=== PATIENT | male | born 1990 | race Caucasian/White ===

== ENCOUNTER 2017-12-25 16:03 | Emergency (ER) | payer SELFPAY ==
[2017-12-25 16:32] VITALS: BP 116/90
--- NOTE | 2017-12-25 16:56 | RAD ---
INDICATION: Medial right ankle pain 2 days after injury COMPARISON: Right foot radiograph November 26, 2014 TECHNIQUE: 3 views of the right ankle were obtained. FINDINGS: The bones are normal alignment. Joint spaces appear maintained. No fracture is seen. IMPRESSION: Normal ankle radiograph. If the patient's symptoms persist, follow-up imaging is recommended.
--- NOTE | 2017-12-25 17:38 | UC ---
Lower Extremity/Ankle HPI - HPI Summary HPI Summary: Patient is a 27-year-old otherwise healthy male presenting to the with medial right ankle pain 2 days. He does not recall injuring the area. Denies any history of injury to the area or tendinitis. Endorses pain worse with flexion, better with extension and rest. Ambulation with pain, rest without pain. Has been taking ibuprofen with mild amount of relief of pain. He has been using crutches also for relief. - History of Current Complaint Chief Complaint: UCLowerExtremity Stated Complaint: ANKLE INJURY Time Seen by Provider: 12/25/17 16:28 Hx Obtained From: Patient Onset/Duration: Sudden Onset Severity Initially: Moderate Severity Currently: Moderate Pain Intensity: 0 Pain Scale Used: 0-10 Numeric Aggravating Factor(s): Standing, Ambulation Alleviating Factor(s): Rest Able to Bear Weight: No Related History: Occupational Injury - Risk Factors Gout Risk Factors: Negative DVT Risk Factors: Negative Septic Arthritis Risk Factor: Negative - Allergies/Home Medications Allergies/Adverse Reactions: Allergies Allergy/AdvReac Type Severity Reaction Status Date / Time No Known Allergies Allergy Verified 12/25/17 16:31 Home Medications: Home Medications NK [No Home Medications Reported] 12/25/17 [History Confirmed 12/25/17] PMH/Surg Hx/FS Hx/Imm Hx Previously Healthy: Yes - Surgical History Surgical History: Yes Surgery Procedure, Year, and Place: UNDESCENDING TESTICLE - Family History Known Family History: Positive: Unknown - Social History Occupation: Employed Full-time Lives: With Family Alcohol Use: Daily Substance Use Type: Marijuana Smoking Status (MU): Current Every Day Smoker Type: Cigarettes Amount Used/How Often: 2 PACKS/WEEK Review of Systems Constitutional: Negative Skin: Negative Respiratory: Negative Cardiovascular: Negative Motor: Negative Neurovascular: Negative Musculoskeletal: Arthralgia - medial R ankle pain Neurological: Negative Is Patient Immunocompromised?: No All Other Systems Reviewed And Are Negative: Yes Physical Exam Triage Information Reviewed: Yes Appearance: Well-Appearing, No Pain Distress, Well-Nourished Vital Signs: Initial Vital Signs Temp 98.4 F 12/25/17 16:28 Pulse 83 12/25/17 16:28 Resp 18 12/25/17 16:28 BP 116/90 12/25/17 16:28 Pulse Ox 99 08/03/18 16:28 Vital Signs Reviewed: Yes Eye Exam: Normal Neck exam: Normal Neck: Positive: Supple, No Lymphadenopathy Respiratory Exam: Normal Respiratory: Positive: Chest non-tender, Lungs clear Cardiovascular Exam: Normal Cardiovascular: Positive: RRR Musculoskeletal Exam: Normal Musculoskeletal: Positive: Strength Intact Neurological: Positive: Alert Psychological: Positive: Normal Response To Family Skin Exam: Normal Lower Extremity Course/Dx - Course Course Of Treatment: During the course of treatment, the patient is evaluated for right medial ankle pain. The pain is just inferior to the medial malleolus with pain on direct palpation. No radiation of pain. Most likely tendinopathy/ tendinitis under the flexor retinaculum due to worsening pain with flexion. He is encouraged ibuprofen, Tylenol, rest, ice continuation of crutches as needed. Note given for work. - Differential Dx/Diagnosis Differential Diagnosis/HQI/PQRI: Fracture (Closed), Sprain, Strain, Tendonitis Provider Diagnoses: Tendonitis Discharge - Sign-Out/Discharge Documenting (check all that apply): Patient Departure - Discharge Plan Condition: Stable Disposition: HOME Patient Education Materials: Tendinitis (ED) Forms: *Work Release Referrals: Benjamin Austin MD [Primary Care Provider] - Additional Instructions: Tylenol 650 mg and ibuprofen 600 mg every 3 hours Crutches as needed for ambulation Elevation Ice to the area - Billing Disposition and Condition Condition: STABLE Disposition: Home
== END 2017-12-25 17:30 | disposition home or self-care (01) ==
LOC: UCEAST 16:03
DX: M77.9 Enthesopathy, unspecified (principal); F17.210 Nicotine dependence, cigarettes, uncomplicated
CPT/HCPCS: 99202; G0463

== ENCOUNTER 2019-07-14 19:27 | Emergency (ER) | payer OTHER ==
[2019-07-14 19:49] VITALS: BP 146/86
[2019-07-14 20:52] LABS: Influenza B Molecular POSITIVE (Negative)
--- NOTE | 2019-07-14 21:06 | UC ---
FLU HPI - HPI Summary HPI Summary: [id number] male presenting with girlfriend for complaint of fever, body aches , cough, and chills times one day. Patient notes intermittent productive cough. Denies shortness breath or wheezing. Denies nausea or vomiting. Taking DayQuil, NyQuil, ibuprofen, and Tylenol for symptom relief. - History of Current Complaint Chief Complaint: UCRespiratory Stated Complaint: FLU SYMPTOMS Hx Obtained From: Patient Pain Intensity: 6 Pain Scale Used: 0-10 Numeric - Allergy/Home Medications Allergies/Adverse Reactions: Allergies Allergy/AdvReac Type Severity Reaction Status Date / Time No Known Allergies Allergy Verified 07/14/19 19:43 Home Medications: Home Medications NK [No Home Medications Reported] 12/25/17 [History Confirmed 07/14/19] PMH/Surg Hx/FS Hx/Imm Hx - Surgical History Surgical History: Yes Surgery Procedure, Year, and Place: UNDESCENDING TESTICLE - Family History Known Family History: Positive: Unknown - Social History Alcohol Use: Weekly Alcohol Amount: twice/week Substance Use Type: Cocaine, Marijuana Substance Use Comment - Amount & Last Used: cocaine 07/09/19 Smoking Status (MU): Current Every Day Smoker Type: Cigarettes Amount Used/How Often: 1/2 PACK/WEEK Review of Systems All Other Systems Reviewed And Are Negative: Yes Constitutional: Positive: Fever, Chills, Fatigue ENT: Positive: Sore Throat, Sinus Congestion Respiratory: Positive: Cough. Negative: Shortness Of Breath Cardiovascular: Positive: Negative Gastrointestinal: Positive: Negative Musculoskeletal: Positive: Myalgia Neurological/Mental Status: Positive: Headache Physical Exam - Summary Physical Exam Summary: Vital Signs Reviewed: Yes A+Ox3, no distress Eyes: Conjunctiva Clear ENT: Hearing grossly normal, TM x 2 clear, moist, uvula midline, no exudate, no erythema Neck: Positive: Supple Respiratory: Positive: No respiratory distress, No accessory muscle use + CTA throughout no w/r Cardiovascular: RRR nl s1, s2 no m/r Musculoskeletal Exam: NARANJO x 4 without difficulty Neurological: Positive: Alert Psychological: Positive: age appropriate behavior Skin: Positive: no rash, no ecchymosis Vital Signs: Initial Vital Signs Temp 97.5 F 07/14/19 19:44 Pulse 102 07/14/19 19:44 Resp 16 07/14/19 19:44 BP 146/86 07/14/19 19:44 Pulse Ox 98 07/14/19 19:44 Lab Results 07/14/19 Range/Units 20:49 Influenza B (Rapid) Positive H (Negative) Flu Course/Dx - Course Course Of Treatment: Rapid flu positive. Educated patient on influenza and Tamiflu. Patient declined treatment Tamiflu at this time. Instructed to follow up with pcp for any new or worsening symptoms. Patient voiced understanding and agreed with treatment plan. - Differential Dx/Diagnosis Differential Diagnosis/HQI/PQRI: Bronchitis, Influenza, Upper Respiratory Infection Provider Diagnosis: Influenza B Discharge ED - Sign-Out/Discharge Documenting (check all that apply): Patient Departure All imaging exams completed and their final reports reviewed: No Studies - Discharge Plan Condition: Stable Disposition: HOME Patient Education Materials: Influenza (ED) Forms: *Work Release Referrals: Benjamin Austin MD [Primary Care Provider] - If Needed Additional Instructions: As discussed, you tested positive for influenza B today. You may take over the counter cold and flu medication for symptom relief. Get plenty of rest and increase your fluid intake. Follow up with your primary care provider or the [facility] listed below if symptoms do not improve within 7 days. - Billing Disposition and Condition Condition: STABLE Disposition: Home
== END 2019-07-14 21:34 | disposition home or self-care (01) ==
LOC: UCEAST 19:27
DX: J10.1 Influenza due to other identified influenza virus with other respiratory manifestations (principal); F17.210 Nicotine dependence, cigarettes, uncomplicated
CPT/HCPCS: 99211; G0463